=== PATIENT | female | born 1995 ===

== ENCOUNTER 2024-11-13 02:35 | Emergency (ER) | payer SELFPAY ==
[~2024-11-13] VITALS: Ht 167.6 cm; Wt 68.0 kg
[2024-11-13] MEDS ORDERED: Haloperidol Lactate Inj. 5 MG/ML Injection IM ONE (03:05)
[2024-11-13] MEDS ORDERED: Ketorolac Tromethamine 15mg Vial IV ONE (03:10)
[2024-11-13] MEDS ORDERED: Mag Hydrox/AL Hydrox/Simeth 30 ML UDC PO ONE (03:10)
[2024-11-13] MEDS ORDERED: Lidocaine 2% Viscous Soln 15 ML UDC PO ONE (03:10)
[2024-11-13 03:18] LABS: BASOPHILS ABSOLUTE AUTO 0.03 K/mm3 (0.00-0.23); BASOPHILS PERCENT AUTO 0 % (0-2); EOSINOPHILS PERCENT AUTO 0 % (0-6); Hematocrit 42.7 % (33.0-51.0); Hemoglobin 14.7 g/dL (11.5-16.0); IMMATURE GRAN ABSOLUTE AUTO 0.04 K/mm3 (0.00-0.10); IMMATURE GRAN PERCENT AUTO 0 % (0-1); LYMPHOCYTES ABSOLUTE AUTO 0.59 K/mm3 (0.84-5.20); LYMPHOCYTES PERCENT AUTO 4 % (21-46); MONOCYTES ABSOLUTE AUTO 0.36 K/mm3 (0.16-1.47); MONOCYTES PERCENT AUTO 2 % (4-13); Mean Corpuscular HGB 32.1 pg (26.0-34.0); Mean Corpuscular HGB Conc 34.4 g/dL (31.5-36.5); Mean Corpuscular Volume 93 fL (80-100); Mean Platelet Volume 10.1 fL (9.1-12.4); NEUTROPHILS ABSOLUTE AUTO 14.76 K/mm3 (1.96-9.15); NEUTROPHILS PERCENT AUTO 94 % (41-73); Platelet Count 360 K/mm3 (150-400); RDW Coefficient Variation 13.4 % (11.7-14.2); RDW Standard Deviation 45.6 fL (35.1-46.3); Red Blood Cell Count 4.58 M/mm3 (3.80-5.20); White Blood Cell Count 15.78 K/mm3 (4.00-11.30)
[2024-11-13 03:40] LABS: Ethanol (Alcohol), Blood, Med <3 mg/dL
[2024-11-13 03:41] LABS: Alanine Aminotransfer (ALT/SGP 29 U/L (12-78); Albumin, Blood 5.2 g/dL (3.4-5.0); Albumin/Globulin Ratio 1.4 (0.8-1.8); Alk Phos 70 U/L (50-136); Anion Gap 21 mmol/L (3-11); Aspartate Aminotrans (AST/SGOT 28 U/L (12-37); Bilirubin, Total 0.8 mg/dL (0.1-1.0); Blood Urea Nitrogen 9 mg/dL (8-24); Bun/Creatinine Ratio 12.4 (12.0-20.0); CO2, Blood 14 mmol/L (21-32); Calcium, Blood 10.1 mg/dL (8.5-10.1); Chloride, Blood 104 mmol/L (98-108); Creatinine, Blood 0.73 mg/dL (0.40-1.00); Globulin, Blood 3.7 g/dL (2.2-4.0); Glomerular Filtration Rate 116 (60-); Glucose, Blood 162 mg/dL (70-99); Potassium, Blood 3.6 mmol/L (3.5-5.5); Sodium, Blood 135 mmol/L (136-145); Total Protein, Blood 8.9 g/dL (6.4-8.2)
[2024-11-13] MEDS ORDERED: NS 1,000 ML IV SCH (04:10)
[2024-11-13] MEDS ORDERED: Prochlorperazine Edisylate 10 mg Vial IV ONE (04:25)
[2024-11-13] MEDS ORDERED: Morphine Sulfate 4 MG/1 ML Injection IV ONE (04:30)
[2024-11-13 04:40] LABS: Source, Urine Clean Catch
[2024-11-13 05:11] LABS: Appearance, Urine Clear (Clear); Bilirubin, Urine Neg (Neg); Blood, Urine Neg (Neg); Color, Urine Yellow (P-Yellow); Glucose Qualitative, Urine Neg (Neg); Ketones, Urine 4+ (Neg); Leukocyte Esterase, Urine Neg (Neg); Nitrite, Urine Neg (Neg); Protein, Urine 2+ (Neg); Specific Gravity, Urine 1.015 (1.003-1.022); Urobilinogen, Urine NORM (Normal)
[2024-11-13 05:21] LABS: Bacteria Rare /hpf; Red Blood Cells, Urine 0-2 /hpf (0-2); Squamous Epithelial Cells Few /hpf (Few); White Blood Cells, Urine 0-2 /hpf (0-5)
[2024-11-13 05:25] LABS: U Amphetamine Screen DETECTED; U Barbituate Screen DETECTED; U Benzodiazapine Screen DETECTED; U Buprenorphine Screen DETECTED; U Cannabinoids Screen DETECTED; U Cocaine Screen DETECTED; U Methadone Screen DETECTED; U Methamphetamine Screen Not Detected; U Opiates Screen Not Detected; U Oxycodone Screen DETECTED; U Phencyclidine Screen DETECTED
[2024-11-13] MEDS ORDERED: COMPAZINE10 MG PO (05:32)
[2024-11-13] MEDS ORDERED: Protonix40 MG PO (05:33)
[2024-11-13] MEDS ORDERED: Dicyclomine HCl 10 MG/ML 2ML Amp IM ONE (05:45)
== END 2024-11-13 06:00 | disposition home or self-care (01) ==
LOC: ER 02:35
PROVIDERS: Emergency Medicine
DX: R11.2 Nausea with vomiting, unspecified (principal); F19.10 Other psychoactive substance abuse, uncomplicated
CPT/HCPCS: 74177; 80053; 80320; 81001; 81025; 83605; 83690; 85025; 96372-59; 96374-59; 96375; 99284-25; A9270; J0500; J0780; J1630; J1885; J2270; J7030; Q9967